=== PATIENT | female | born 1975 | race Caucasian/White ===

== ENCOUNTER 2017-05-11 10:01 | Day surgery (SDC) | payer MEDICAID ==
[2017-05-09 11:20] VITALS: BMI 36.0
[2017-05-11] MEDS ORDERED: Lactated Ringer's 1,000 ML IV ONE (11:50)
[2017-05-11] MEDS ORDERED: ceFAZolin 1 gm in NS 2 GM/200 ML BAG IVPB ONE (11:59)
[2017-05-11] MEDS ORDERED: Propofol 10 mg/ml Inj (20 ML) ONE (12:12)
[2017-05-11] MEDS ORDERED: Midazolam 2 MG/2 ML VIAL ONE (12:12)
[2017-05-11] MEDS ORDERED: Bupivacaine HCl 0.25% PF (10 ml) Inj ONE (12:52)
[2017-05-11] MEDS ORDERED: Bupivacaine HCl 0.5% PF (10 ml) Inj ONE (12:52)
[2017-05-11] MEDS ORDERED: Neostigmine Methylsulfate 3mg/3ml Syringe IV ONE (13:01)
[2017-05-11] MEDS ORDERED: Oxycodone/Acetaminophen 5/325 mg Tab PO PRN (13:14)
[2017-05-11] MEDS ORDERED: HYDROmorphone 0.5 mg/0.5 ml ISec IVP PRN (13:27)
[2017-05-11 15:52] VITALS: RESP 18
[2017-05-11 16:56] VITALS: BP 123/70; PULSE 82; TEMP 97.6; O2SAT 100
--- NOTE | 2017-05-12 00:18 | OP ---
PROCEDURE DATE: 05/11/2017 PREOPERATIVE DIAGNOSIS: [id number] cholecystitis. POSTOPERATIVE DIAGNOSIS: [id number]-me-[id number] cholecystitis. PROCEDURE PERFORMED: Laparoscopic cholecystectomy and repair of umbilical hernia. SURGEON: Roel Agosto MD ANESTHESIA: General. BLOOD LOSS: 40 mL. POSTOP CONDITION: Stable. INDICATIONS FOR SURGERY: This is a 42-year-old female with a history of longstanding biliary colic, found to have multiple gallstones on an ultrasound, now presents for an elective laparoscopic cholecystectomy. GROSS FINDINGS: Gallbladder contained stones. There was evidence of chronic cholecystitis. An umbilical hernia was noted upon umbilical cut-down and repaired at the conclusion of the procedure. PROCEDURE: The patient was taken to the operating room, placed in the supine position. General anesthesia was administered and the abdomen was prepped and draped. A periumbilical cut down was performed. The small umbilical hernia was encountered, dissected free and a blunt port was inserted. The abdomen was then insufflated with CO2 under direct vision, the remaining ports were placed. The gallbladder was then retracted in the cystic duct, cystic artery was carefully dissected free. Cystic artery was clipped first and divided. Prior to clipping the cystic duct, the common duct as well as the cystic duct gallbladder junction clearly identified. It was then clipped and divided. The gallbladder was removed from the bed using a cautery, bleeding in the bed was controlled using a cautery, a rent medial to the gallbladder bed was repaired laparoscopically. The abdomen was irrigated with saline until clear. The umbilical hernia repair was accomplished with multiple heavy Monocryl sutures and underlying tissue flap closure was utilized to close the space. The remaining incisions were closed with simple Monocryl subcuticular sutures. The patient tolerated the procedure well and returned to recovery room in stable condition. Roel Agosto MD
== END 2017-05-11 17:01 | disposition home or self-care (01) ==
LOC: C.SDS 10:01
PROVIDERS: ATTEND Surgery
DX: K80.10 Calculus of gallbladder with chronic cholecystitis without obstruction (principal)
CPT/HCPCS: 47562; 82948; 88304; C1713; J0690; J1170; J1885; J2250; J2405; J2704; J2710; J2765; J3010; J7120

== ENCOUNTER 2018-06-23 09:21 | Outpatient (CLI) | payer OTHER | END 2018-06-23 09:22 | disposition home or self-care (01) | LOC: C.MAMMO 09:21 | DX: Z12.31 Encounter for screening mammogram for malignant neoplasm of breast (principal) ==